=== PATIENT | male | born 1970 | race African-American/Black ===

== ENCOUNTER 2022-06-18 04:42 | Day surgery (SDC) | payer OTHER ==
[2022-06-16 15:58] VITALS: BMI 29.0
[2022-06-18 12:16] VITALS: TEMP 98
[2022-06-18 12:34] VITALS: PULSE 65
[2022-06-18 13:17] VITALS: BP 121/77; RESP 20
== END 2022-06-18 13:20 | disposition home or self-care (01) ==
LOC: JASU-ENDO 04:42
PROVIDERS: ATTEND Internal Medicine Gastroenterology
PROC: 0DBP8ZX Excision of Rectum, Via Natural or Artificial Opening Endoscopic, Diagnostic (ICD-10-PCS; principal; 2022-06-18 12:00)
DX: Z12.11 Encounter for screening for malignant neoplasm of colon (principal); D12.8 Benign neoplasm of rectum; K64.8 Other hemorrhoids
CPT/HCPCS: 82962; 88305-TC